=== PATIENT | female | born 1965 | race Caucasian/White ===

== ENCOUNTER 2025-03-19 13:06 | Inpatient (IN) | payer OTHER ==
[~2025-03-19] VITALS: Ht 170.2 cm; Wt 81.0 kg
--- NOTE | 2025-03-19 13:12 | Physician Documentation ---
History of Present Illness Stated Complaint: ABD PAIN Time Seen by MD: 13:10 OK to notify your PCP?: Yes Source: patient, RN/MD, EMS, RN notes reviewed, EMS notes reviewed, old records Mode of Arrival: EMS Exam Limitations: no limitations HPI 59 year old female with a history of UTIs who was seen in bed 10 presents to the emergency department via EMS for complaints of abdominal pain that began last night. Patient states that her pain worsened this morning and is now rad iating to her left flank. She states that she is having difficulty urinating and chills. Prior to being seen by EMS her pain was 10/10 but upon arrival she states her pain is a 7/10. She denies any diarrhea. Patient states that she typically takes Metroprol for her blood pressure but she has been out and could not refill due to insurance issues. Medication Reconciliation Allergies: Coded Allergies: Penicillins (Verified Allergy, Unknown, 03/19/25) Past Medical History Past Medical History: Hypertension Past Surgical History: orthopedic surgeries, other Smoking Status: Current every day smoker Alcohol Use: Occasionally Drug Use: marijuana Review of Systems All Other Systems at this time: Reviewed and Negative ROS As stated above in the HPI, otherwise all systems are reviewed and negative. Physical Exam Vital Signs: RN Vital Signs have been reviewed: Yes Pulse Oximetry Reflects: adequate oxygenation Physical Exam General: The patient is well developed, well nourished, nontoxic appearing and is in no acute distress. Skin: [place], warm and dry with no rashes. HEENT: Head was normocephalic and atraumatic. Eyes - pupils equal, round, reactive to light and accommodation. Extraocular movements were intact. Conjunctivae were nonicteric. Ears - bilateral tympanic membranes were normal. The mouth and oropharynx were clear with moist mucous membranes. There were no pharyngeal exudates or erythema. Neck: Supple and nontender. There was no jugular venous distention, lymphadenopathy, thyromegaly or masses. Chest: Clear to auscultation bilaterally without wheezes, rales or rhonchi. No accessory muscle use. No dullness to percussion. Heart: Rate regular and rhythmic. S1, S2. No murmurs. Palpation of the chest wall was normal. No rubs or thrills. Abdomen: Left lower quadrant pain, otherwise soft, nontender and nondistended. Positive bowel sounds. No guarding or rebound. No hepatosplenomegaly or palpable masses. Extremities: No cyanosis, clubbing or edema. The patient moves all extremities. Pulses were equal and symmetric. Neurologic: Cranial nerves II-XII were intact. Sensation was intact to light touch throughout. Motor strength was 5/5 in all four extremities. Deep tendon reflexes were intact in both upper and lower extremities. Psychologic: The patient was oriented to person, place and time. The patient demonstrated appropriate judgement and insight. Progress Progress Note 1741: The case was discussed with Dr. Calix who was informed on the patients case and kindly agreed to admission. Results/Orders Reviewed/noted all lab results: Yes Re-Evaluation Re-Evaluation : Re-Evaluation Time: 17:32 Re-Evaluation: Improved Progress Patient was re evaluated at this time and she stated she was feeling tender. On exam patient had no crepitus, swelling, or redness to the area. Patient did have pain that seemed to be out of proportion. Laboratory work was obtained no signs of significant infection with a normal WBC of 7.6 H and H 14 and 42 MCV 99 platelets 154. Sed rate is pending. Patient's chemistries within normal limits LFTs are slightly abnormal with bilirubin slightly elevated at 0.6 AST 117 ALT 140 and alk-phos 135. Ultrasound was then ordered and obtained not show any cholecystitis or gallstones. Lactic acid was reassuring with a level of 1.0. Procalcitonin also negative. However urinalysis shows a specific gravity 1.025 trace ketones positive leukocyte esterase WBCs 10-20 there is 1+ bacteria but also some moderate squamous epithelial cells. However cat scan showed possible abdominal wall cellulitis etiology unclear there stranding there is pain. IV vancomycin was then written in the patient was admitted to the hospitalist service for further workup and care. Pulse oximetry monitor interpretation shows normal oxygenation 98% room air, normal, my interpretation. entomology teacher interpretation shows normal sinus rhythm how heart rate 70s, no ectopy, normal, my interpretation. EKG/XRAY/CT/US/VASC/MRI CT : Impression CT ABDOMEN AND PELVIS WITHOUT CONTRAST CLINICAL HISTORY: ABD PAIN TECHNIQUE: Multiple contiguous axial images of the abdomen and pelvis without intravenous contrast. The images were reformatted degenerate coronal and sagittal reconstructions. All CT scans at this medical facility are performed using dose modulation techniques as appropriate to a performed exam including the following:Automated exposure control was utilized; adjustment of the MA and/or KV according to patient size; and use of iterative reconstruction technique. Radiation Dose Information: CT Dose: CTDI volume is 22 mGy. Dose-length product is 1053 mGy*cm Comparison: None FINDINGS: Evaluation of the abdomen and pelvis is limited without intravenous contrast. The liver, gallbladder, pancreas, kidneys, adrenal glands, and spleen appear within normal limits. There is no gross evidence of abdominal lymphadenopathy. There is no free fluid or free air. The stomach grossly appears unremarkable. The small and large bowel loops demonstrate normal caliber and distribution. A normal appearing appendix is seen in the right lower quadrant abdomen. The abdominal aorta and IVC appear within normal limits. The bladder appears unremarkable for the degree of distention. Uterus grossly appears unremarkable.. There is no gross evidence of a pelvic mass. There is no free fluid collection. Lung bases are clear. There are age-indeterminate fractures of the left L3 and L4 transverse processes. There is asymmetric enlargement of the left posterior abdominal wall musculature with surrounding fat stranding (axial image 40). There is intramuscular hyperdensity measuring approximately 2.9 x 4.0 x 7.4 cm (AP by transverse by cc). This probably represents intramuscular hematoma. IMPRESSION: 1. Asymmetric enlargement of the left posterior abdominal wall musculature with surrounding fat stranding. There is intramuscular hyperdensity probably representing intramuscular hematoma. Clinical correlation is recommended. 2. Age-indeterminate fractures of the left L3 and L4 transverse processes. 3. There is no acute process in the abdomen and pelvis. HS:Y Electronically Signed by:ERNESTO ERICKSON MD Date & Time: 03/19/25 1511 Ultrasound : Impression Procedure: [facility] Study Date and Requested Time: 03/19/2025 05:58 PM History: ruq pain Comparison: CT abdomen and pelvis 03/19/2024 Technique: Multiple high resolution camarena-scale images obtained of the right upper quadrant of the abdomen with color Doppler for evaluation of blood flow and vascularity as indicated. Findings: Liver normal in size, measuring 14.25 cm in length, with slightly increased echogenicity and normal contours. No evidence of focal hepatic lesions, intrahepatic or extrahepatic ductal dilatation. Common bile duct measures 0.6 cm in diameter. Gallbladder unremarkable with no evidence of abnormal wall thickening, gallstones, biliary sludge, or pericholecystic fluid. Negative sonographic Silverio's sign. Pancreas is obscured by bowel gas. Right kidney measures 10.8 cm in length, with normal contours, echotexture, and cortical thickness. No evidence of hydronephrosis, calculi, cystic or solid renal lesions. Partially visualized inferior vena cava unremarkable. Impression: Increased hepatic echogenicity may be from hepatic steatosis. Otherwise, unremarkable sonographic study of the right upper abdominal quadrant. Medical Decision Making Differential Dx:Considerations: Include: Aortic dissection, Appendicitis, Bowel obstruction, Cholangitis, Cholelithasis, Constipation, Diverticular disease, Esophagitis, Gastritis/PUD, Gastroenteritis, GI hemorrhage, Hernia, Hepatitis, Inflammatory BD, Ischemic bowel, Ovarian cyst/torsion, Pancreatitis, PID, Trauma, intraabdominal, Urinary obstruction, Urinary tract infection, Urolithiasis, Other Departure Time of Disposition: 17:41 Disposition: 01 HOME / SELF CARE / HOMELESS Admitted to Inpatient Unit: to hospitalist Admission Level of Care: Med/Surg Impression: Primary Impression: Acute urinary tract infection Additional Impression: Abdominal wall cellulitis Condition: Fair Discharge Instructions: Urinary Tract Infection, Adult Referrals: NO PRIMARY CARE PROVIDER (PCP) Education Educated: Patient, Family Educated regarding: diagnosis, treatment, prognosis, need for follow up Signature Scribe Signature: Scribed for Ramon Espinal MD by Nelida Myers . 03/19/25 13:21 Attestation: The note accurately reflects work and decisions made by me.Ramon Espinal MD 03/19/25 13:11 RAMON ESPINAL MD March 19, 2025 13:12 NELIDA THOMPSON March 19, 2025 13:21
[2025-03-19] MEDS ORDERED: meperidine/PF 50mg/ml syringe IV ONE (13:55)
[2025-03-19] MEDS: normal saline 1000ML IV soln IVB ONE (14:12)
[2025-03-19] MEDS: HYDROmorphone 1 mg/ml syringe IV ONE ×3 (14:20→21:11)
[2025-03-19 14:30] LABS: BASOPHILS % (AUTO) 0.6 % (0-1); EOSINOPHILS % (AUTO) 0.3 % (0-6); HEMATOCRIT 42.3 % (35.0-45.0); HEMOGLOBIN 14.7 g/dl (12.0-16.0); LYMPHOCYTES # (AUTO) 1.5 X10'3 (1.1-4.8); LYMPHOCYTES % (AUTO) 19.9 % (21-51); MEAN CORPUSCULAR HEMOGLOBIN 34.5 PG (27.0-31.0); MEAN CORPUSCULAR HGB CONC 34.8 g/dL (33.0-36.5); MEAN PLATELET VOLUME 10.5 FL (7.4-10.4); MONOCYTES # (AUTO) 0.6 X10'3 (0-0.9); MONOCYTES % (AUTO) 7.3 % (2-12); NEUTROPHILS # (AUTO) 5.5 X10'3 (1.8-7.7); NEUTROPHILS % (AUTO) 71.9 % (42-75); PLATELET COUNT 154 X10'3 (140-440); RED BLOOD COUNT 4.27 X10'6 (4.20-5.60); RED CELL DISTRIBUTION WIDTH 12.2 % (11.5-14.5); WHITE BLOOD COUNT 7.6 X10'3 (4.5-11.0)
[2025-03-19 14:38] LABS: ALANINE AMINOTRANSFERASE 140 U/L (12-78); ALBUMIN 3.4 G/DL (3.4-5.0); ALBUMIN/GLOBULIN RATIO 0.9 (1.1-1.5); ALKALINE PHOSPHATASE 135 IU/L (46-116); AMYLASE 33 U/L (25-115); ANION GAP 8 (8-16); ASPARTATE AMINO TRANSFERASE 117 U/L (10-37); BILIRUBIN,DIRECT 0.6 MG/DL (0-0.3); BLOOD UREA NITROGEN 12 MG/DL (7-18); BUN/CREATININE RATIO 15.2 (10.0-20.0); CALCIUM 8.8 MG/DL (8.5-10.1); CHLORIDE 102 MMOL/L (99-107); CREATININE 0.79 MG/DL (0.40-0.90); GLUCOSE 103 MG/DL (70-104); MAGNESIUM 1.8 MG/DL (1.5-2.4); POTASSIUM 3.7 MMOL/L (3.5-5.1); SODIUM 135 MMOL/L (135-145); TOTAL CARBON DIOXIDE 24.6 MMOL/L (24-32); TOTAL PROTEIN 7.2 G/DL (6.4-8.2); eCRCL 75 ML/MIN; eGFR 75 ML/MIN
--- NOTE | 2025-03-19 15:14 | RADIOLOGY REPORT ---
CT ABDOMEN AND PELVIS WITHOUT CONTRAST CLINICAL HISTORY: ABD PAIN TECHNIQUE: Multiple contiguous axial images of the abdomen and pelvis without intravenous contrast. T he images were reformatted degenerate coronal and sagittal reconstructions. All CT scans at this medical facility are performed using dose modulation techniques as appropriate t o a performed exam including the following:Automated exposure control was utilized; adjustment of the MA and/or KV according to patient size; and use of iterative reconstruction technique. Radiation Dose Information: CT Dose: CTDI volume is 22 mGy. Dose-length product is 1053 mGy*cm Comparison: None FINDINGS: Evaluation of the abdomen and pelvis is limited without intravenous contrast. The liver, gallbladder, pancreas, kidneys, adrenal glands, and spleen appear within normal limits. There is no gross evidence of abdominal lymphadenopathy. There is no free fluid or free air. The stomach grossly appears unremarkable. The small and large bowel loops demonstrate normal caliber and distribution. A normal appearing appendix is seen in the right lower quadrant abdomen. The abdominal aorta and IVC appear within normal limits. The bladder appears unremarkable for the degree of distention. Uterus grossly appears unremarkable.. There is no gross evidence of a pelvic mass. There is no free fluid collection. Lung bases are clear. There are age-indeterminate fractures of the left L3 and L4 transverse processes. There is asymmetric enlargement of the left posterior abdominal wall musculature with surrounding fat stranding (axial image 40). There is intramuscular hyperdensity measuring approximately 2.9 x 4.0 x 7.4 cm (AP by transverse by cc). This probably represents intramuscular hematoma. IMPRESSION: 1. Asymmetric enlargement of the left posterior abdominal wall musculature with surrounding fat stran ding. There is intramuscular hyperdensity probably representing intramuscular hematoma. Clinical angelo elation is recommended. 2. Age-indeterminate fractures of the left L3 and L4 transverse processes. 3. There is no acute process in the abdomen and pelvis. HS:Y
[2025-03-19 16:55] LABS: BILIRUBIN,URINE NEGATIVE (Neg); CLARITY,URINE CLOUDY (Clear); COLOR,URINE YELLOW (Yellow); GLUCOSE, URINE NEGATIVE (Neg); KETONES,URINE TRACE mg/dl (Neg); LEUKOCYTE ESTERASE ,URINE TRACE (Neg); NITRITES, URINE NEGATIVE (Neg); OCCULT BLOOD,URINE NEGATIVE (Neg); PROTEIN,URINE NEGATIVE (Neg)
[2025-03-19 16:59] LABS: UA COLLECTION TYPE URINAL
[2025-03-19 17:00] LABS: MUCUS STRANDS MANY /LPF (Neg); SQUAMOUS EPITHELIAL CELL,UR MODERATE /LPF (FEW)
[2025-03-19 17:01] LABS: BACTERIA,URINE 1+ /HPF (Neg); RBC,URINE 0-2 /HPF (0-2)
[2025-03-19] MEDS: normal saline 1000ML IV soln IV ONE (17:43)
[2025-03-19] MEDS ORDERED: magnesium sulf-water 2g/50mL 50 ML IV PRN (18:00)
[2025-03-19] MEDS ORDERED: magnesium sulf-water 4G/100mL 100 ML IV PRN (18:00)
[2025-03-19] MEDS: normal saline 1000ml 1,000 ML IV SCH (18:00)
[2025-03-19] MEDS ORDERED: acetaminophen 325mg tablet PO PRN (18:00)
[2025-03-19] MEDS ORDERED: mag hydrox/Alum hydrox/simeth 30ml oral suspension PO PRN (18:00)
[2025-03-19] MEDS ORDERED: magnesium hydroxide 30ml (MOM) UD suspension PO PRN (18:00)
[2025-03-19] MEDS ORDERED: potassium Cl 20 mEq SR tablet PO PRN ×2 (18:00)
[2025-03-19] MEDS ORDERED: potassium Cl 40MEQ/1/2NS 520ml 520 ML IV PRN (18:00)
[2025-03-19 18:13] LABS: C-REACTIVE PROTEIN 0.07 MG/DL (0.0-0.5); CKMB RELATIVE INDEX 1.3 RATIO (0-2.5); CREATINE KINASE 151 U/L (26-192); CREATINE KINASE MB 1.9 ng/ml (0.3-3.6)
[2025-03-19] MEDS: vancomycin/NS 1 GM ADD-VANTAGE 250 ML IV SCH (18:18)
--- NOTE | 2025-03-19 18:54 | RADIOLOGY REPORT ---
Procedure: US ULTRASOUND OF ABDOMEN [facility] Study Date and Requested Time: 03/19/2025 05:58 PM History: ruq pain Comparison: CT abdomen and pelvis 03/19/2024 Technique: Multiple high resolution camarena-scale images obtained of the right upper quadrant of the abd omen with color Doppler for evaluation of blood flow and vascularity as indicated. Findings: Liver normal in size, measuring 14.25 cm in length, with slightly increased echogenicity and normal c ontours. No evidence of focal hepatic lesions, intrahepatic or extrahepatic ductal dilatation. Common bile duct measures 0.6 cm in diameter. Gallbladder unremarkable with no evidence of abnormal wall thickening, gallstones, biliary sludge, or pericholecystic fluid. Negative sonographic Silverio's sign. Pancreas is obscured by bowel gas. Right kidney measures 10.8 cm in length, with normal contours, echotexture, and cortical thickness. N o evidence of hydronephrosis, calculi, cystic or solid renal lesions. Partially visualized inferior vena cava unremarkable. Impression: Increased hepatic echogenicity may be from hepatic steatosis. Otherwise, unremarkable sonographic álvaro dy of the right upper abdominal quadrant.
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
[2025-03-19] MEDS: K and/or MAG REPLACEMENT MC SCH (19:47)
[2025-03-19] MEDS: docusate sod 100mg capsule PO SCH (20:00)
[2025-03-19] MEDS: ciprofloxacin lact 400MG/200ML 200 ML IV SCH (20:44)
[2025-03-19] MEDS ORDERED: METO50TA17 PO (21:04)
[2025-03-19 22:50] VITALS: BP 126/69; PULSE 68; RESP 18; TEMP 98.1; O2SAT 98
[2025-03-19 23:30] VITALS: RESP 18; O2SAT 98
[2025-03-20] MEDS: metroNIDAZOLE-Flagyl 500mg/NS 100 ML IV SCH (00:13)
[2025-03-20] MEDS: ondansetron/PF 4mg/2ml inj IV PRN (00:22)
[2025-03-20] MEDS: HYDROcodone/acetaminophen 10/325mg tab PO PRN (05:29)
[2025-03-20 06:10] LABS: BASOPHILS % (AUTO) 0.6 % (0-1); EOSINOPHILS # (AUTO) 0.1 X10'3 (0-0.9); EOSINOPHILS % (AUTO) 1.2 % (0-6); HEMATOCRIT 34.8 % (35.0-45.0); HEMOGLOBIN 12.1 g/dl (12.0-16.0); LYMPHOCYTES # (AUTO) 1.5 X10'3 (1.1-4.8); LYMPHOCYTES % (AUTO) 34.6 % (21-51); MEAN CORPUSCULAR HEMOGLOBIN 35.1 PG (27.0-31.0); MEAN CORPUSCULAR HGB CONC 34.8 g/dL (33.0-36.5); MEAN CORPUSCULAR VOLUME 100.8 FL (78-98); MEAN PLATELET VOLUME 10.8 FL (7.4-10.4); MONOCYTES # (AUTO) 0.5 X10'3 (0-0.9); MONOCYTES % (AUTO) 10.4 % (2-12); NEUTROPHILS # (AUTO) 2.4 X10'3 (1.8-7.7); NEUTROPHILS % (AUTO) 53.2 % (42-75); PLATELET COUNT 113 X10'3 (140-440); RED BLOOD COUNT 3.45 X10'6 (4.20-5.60); RED CELL DISTRIBUTION WIDTH 12.2 % (11.5-14.5); WHITE BLOOD COUNT 4.5 X10'3 (4.5-11.0)
[2025-03-20 06:23] LABS: ALANINE AMINOTRANSFERASE 103 U/L (12-78); ALBUMIN 2.6 G/DL (3.4-5.0); ALBUMIN/GLOBULIN RATIO 0.8 (1.1-1.5); ALKALINE PHOSPHATASE 109 IU/L (46-116); ANION GAP 7 (8-16); ASPARTATE AMINO TRANSFERASE 87 U/L (10-37); BILIRUBIN,TOTAL 1.3 MG/DL (0.1-1.0); BLOOD UREA NITROGEN 8 MG/DL (7-18); BUN/CREATININE RATIO 12.3 (10.0-20.0); CALCIUM 7.9 MG/DL (8.5-10.1); CHLORIDE 108 MMOL/L (99-107); CREATININE 0.65 MG/DL (0.40-0.90); GLUCOSE 94 MG/DL (70-104); MAGNESIUM 1.7 MG/DL (1.5-2.4); POTASSIUM 3.7 MMOL/L (3.5-5.1); SODIUM 140 MMOL/L (135-145); TOTAL CARBON DIOXIDE 24.6 MMOL/L (24-32); TOTAL PROTEIN 5.8 G/DL (6.4-8.2); eCRCL 92 ML/MIN; eGFR > 90 ML/MIN
[2025-03-20 06:37] VITALS: BP 113/61; PULSE 71; RESP 16; TEMP 97.6; O2SAT 95
[2025-03-20 08:00] VITALS: RESP 16
[2025-03-20] MEDS ORDERED: iohexol 350 MG/ML 50ML vial IV ONE (08:20)
[2025-03-20] MEDS ORDERED: iohexol 350MG/ML 100ml bottle IV ONE (08:20)
--- NOTE | 2025-03-20 09:51 | RADIOLOGY REPORT ---
Exam: CT CTA AORTA DISECTION W/ IV CONTRAST History: abdominal musculature hematoma Comparison Study: CT abdomen pelvis obtained yesterday Technique: Multidetector spiral CT of the chest, abdomen and pelvis was performed from lower neck to pubic symphysis. Intravenous contrast was administered during this examination. Portal venous imag ing was obtained. Axial, coronal and sagittal multiplanar reformats were performed by the technologis t on a separate workstation. Radiation Dose : 1. Chest/Abdomen/Pelvis: CTDIvol 20.6 mGy, DLP 1442 mGy*cm. Findings: Lower neck: Normal thyroid. Lungs: No focal consolidation, pleural effusion or pneumothorax. Heart/Vascular Structures: Normal heart size. No pericardial effusion. Lymph Nodes: No adenopathy Pleura: No pleural effusion or significant pneumothorax. Liver: The liver is normal in size. No focal lesions. Normal hepatic vascular enhancement. Gallbladder and Biliary Tree: Unremarkable Spleen: Unremarkable Pancreas: The pancreas is normal in appearance without focal lesions or abnormal enhancement. Adrenal Glands: Unremarkable Kidneys: Kidneys demonstrate normal symmetric enhancement without focal lesions, calculi or hydroneph rosis. Bladder: Unremarkable Bowel: The stomach is grossly normal in appearance. Small bowel and colon are normal in caliber and d istribution. The appendix is not visualized; however, no secondary findings of acute appendicitis id entified. Ascites: Absent Lymphadenopathy: No mesenteric, retroperitoneal or periportal lymphadenopathy. Abdominal Wall and Mesentery: Unremarkable. Vasculature: The visualized abdominal aorta is normal in size and caliber. Abdominal and pelvic vess els demonstrate normal enhancement. Pelvic Organs: Unremarkable Musculoskeletal: No aggressive focal bony lesions, acute fractures or dislocation. Left retroperitone al hematoma is seen adjacent to the posterior abdominal wall musculature measuring 3.0 x 4.9 x 10 cm (AP x TV x CC). No acute arterial hemorrhage identified. Age indeterminate fractures of the left L3 and L4 transverse processes. IMPRESSION: Left retroperitoneal hematoma is seen adjacent to the posterior abdominal wall musculature measuring 3.0 x 4.9 x 10 cm (AP x TV x CC). No acute arterial extravasation identified
[2025-03-20 10:00] VITALS: BP 108/56; PULSE 63; RESP 20; TEMP 99.2; O2SAT 97
[2025-03-20 12:28] VITALS: RESP 18
--- NOTE | 2025-03-20 14:37 | RADIOLOGY REPORT ---
INDICATION: low back pain with frx of transvere process COMPARISON: None TECHNIQUE: Frontal, oblique and lateral views of the lumbar spine were obtained. FINDINGS: The lumbar vertebral alignment is normal. The intervertebral disc spaces are well-maintained. No significant facet arthropathy is noted. No vertebral body fracture or significant compression deformity noted. Please note that the described transverse process fractures are not visible. The paravertebral soft tissues are grossly unremarkable. Excreted contrast in the collecting systems. IMPRESSION: 1. No acute fracture.
[2025-03-20] MEDS ORDERED: METR-159 PO (14:55)
[2025-03-20] MEDS ORDERED: LEVO-65 PO (14:55)
--- NOTE | 2025-03-20 21:08 | DISCHARGE SUMMARY ---
Discharge Summary Providers to CC ~ Discharge Summary Admission Diagnosis: abdominal wall hematoma Hospital Course DATE OF ADMISSION: 03/19/2025 DATE OF DISCHARGE: 03/20/2025 Discharge Diagnosis\Comment: Abdominal musculature hematoma with secondary infection, hypertension, tobacco use disorder, occasional methamphetamine use in coffee, hypertension Operations\Procedures: None Consultants: None Complications: None Condition on DC: Stable New Medications: Levofloxacin (Levofloxacin) 500 Mg Tablet 1 TAB PO DAILY for 7 Days, #7 TAB Metronidazole* (Flagyl*) 500 Mg Tablet 1 TAB PO Q8H for 7 Days, #21 TAB Continued Medications: Metoprolol Tartrate* (Metoprolol Tartrate*) 50 Mg Tablet 1 TAB PO DAILY for 30 Days, #60 TAB 0 Refills Discharge Summary: I admitted the patient with the following HPI:This is a 66-year-old female who presents to the ED with severe left-sided flank/abdominal pain x1 day however the patient has been experiencing abdominal pain radiating to the left flank for greater than one year. The patient has has a history of frequent UTIs and was concerned that she may have a UTI. The patient has a mildly elevated bilirubin and liver function tests. The patient has white blood cells in her urine +1+ bacteria but moderate squamous cell epithelial cells. Abdominal ultrasound demonstrated increased hepatic echogenicity which is consistent with a hepatic steatosis otherwise unremarkable ultrasound. And a CT scan of the abdomen demonstrated an asymmetrical enlargement of the left posterior abdominal wall musculature with surrounding fat stranding and there was a intramuscular hyperdensity possibly representing the intermuscular hematoma which the density is 2.9 x 4.0 x 7.4 cm. The patient's grandma of a AAA- thus I have ordered a CTA of the abdomen and pelvis. The patient will be on IV Flagyl and IV Cipro. A CTA of the ureter to eval for aortic dissection and aneurysm was unremarkable. The patient remained in pain however this did improve I did discuss the case with vascular surgeon Dr. Chowdary who mentioned this is likely a spontaneous hematoma and will resolve without any intervention. The patient was improved significantly however was complaining of numbness in the her lateral left superior hip we discussed further workup and a lumbar series x-ray was obtained which was negative for any fractures or significant degenerative disc disease. Patient has a history of hypertension her blood pressure was well controlled during hospitalization the patient remains on metoprolol I did speak with the patient about smoking cessation on admission the patient did not want a nicotine patch and states she smokes cigarettes a day and was not going to buy any cigarettes going forward Gen. No acute distress alert and oriented 4 Lungs clear to ascultation bilaterally, no wheezes rales or rhonchi appreciated Heart normal sinus rhythm no murmurs rubs or clicks noted Abdomen soft moderate left flank tenderness bowel sounds are normoactive Lower extremities no clubbing cyanosis, nor edema appreciated bilaterally The patient felt ready to be discharged and was medically cleared to be discharged on 03/20/2025- with an additional one-week script of levofloxacin 500 mg daily and metronidazole 500 mg t.i.d. the patient is was also instructed to obtain a [id number] probiotic to help avoid antibiotic induced colitis. The patient was seen and evaluated on day of discharge. Time spent on discharge 40 minutes The patient recovered sooner than to be expected with abdominal wall hematoma was secondary to infection *Problems/Diagnosis: (1) Abdominal wall hematoma Total Time Spent on D/C: > 30 Minutes Date of Service: March 20, 2025 Billing Provider: JASMYNE PADILLA DO Common Visit Codes: 31325-FEV/OBS DISCH DAY >30min JASMYNE PADILLA DO March 20, 2025 21:08
== END 2025-03-20 17:01 | disposition home or self-care (01) | DRG 605 ==
LOC: ER 13:07 → ED HOLD 18:02 → SUR 3N 22:50
PROVIDERS: ADMIT Family Medicine; ATTEND Family Medicine
PROC: BW251ZZ Computerized Tomography (CT Scan) of Chest, Abdomen and Pelvis using Low Osmolar Contrast (ICD-10-PCS; principal; 2025-03-19)
DX: S30.1XXA Contusion of abdominal wall, initial encounter (principal); N39.0 Urinary tract infection, site not specified; L03.311 Cellulitis of abdominal wall; M54.9 Dorsalgia, unspecified; X58.XXXA Exposure to other specified factors, initial encounter; K76.0 Fatty (change of) liver, not elsewhere classified; I10 Essential (primary) hypertension; F17.210 Nicotine dependence, cigarettes, uncomplicated; F15.90 Other stimulant use, unspecified, uncomplicated; Y93.89 Activity, other specified; Y92.89 Other specified places as the place of occurrence of the external cause; Y99.8 Other external cause status; Z79.899 Other long term (current) drug therapy; Z82.0 Family history of epilepsy and other diseases of the nervous system; Z82.3 Family history of stroke; Z82.49 Family history of ischemic heart disease and other diseases of the circulatory system; Z87.440 Personal history of urinary (tract) infections; Z88.0 Allergy status to penicillin
CPT/HCPCS: 36415; 71275; 72110; 74174; 74176; 76700; 80048; 80053; 80076; 81001; 82150; 82550; 82553; 83605; 83735; 83874; 84145; 85025; 85651; 86140; 87040; 87081; 87088; 96361; 96374; 96375; 96376; 99285; A6449; G0378; J0744; J1171; J2405; J3370; J3490; J7030; Q9967